=== PATIENT | male | born 1990 | race Caucasian/White ===

== ENCOUNTER 2016-09-28 18:42 | Emergency (ER) | payer OTHER ==
[~2016-09-28] VITALS: Ht 182.9 cm; Wt 93.1 kg
[2016-09-28 20:23] VITALS: BP 107/81
== END 2016-09-28 20:23 | disposition left against medical advice (07) ==
LOC: TRA → EME 18:42 → TRA 20:23
DX: M54.2 Cervicalgia (principal); M54.5 Low back pain; V49.88XA Car occupant (driver) (passenger) injured in other specified transport accidents, initial encounter; Z53.20 Procedure and treatment not carried out because of patient's decision for unspecified reasons
CPT/HCPCS: 80048; 85027; 99281; 99284